=== PATIENT | male | born 1985 | race Caucasian/White ===

== ENCOUNTER 2018-12-10 04:00 | Emergency (ER) | payer MEDICAID ==
[~2018-12-10] VITALS: Ht 175.3 cm; Wt 90.7 kg
[2018-12-10 04:04] VITALS: BP 146/82
--- NOTE | 2018-12-10 04:08 | NUR ---
33 Y/O M [employer] [employer] FOR PREBOOK. PT HAS NO MEDICAL COMPLAINTS AT THIS TIME.
[2018-12-10 04:10] VITALS: BP 146/82
--- NOTE | 2018-12-10 04:14 | NUR ---
PATIENT BIB [employer]. PATIENT EXAMINED BY DR. DENT. PATIENT MEDICALLY CLEARED AND RELEASED IN CUSTODY IN STABLE CONDITION. RX OF BACTRIM GIVEN. ORIGINAL PRE-BOOK FORM GIVEN TO OFFICER SILVIA.
== END 2018-12-10 04:14 ==
LOC: MED 04:00
DX: S61.401A Unspecified open wound of right hand, initial encounter (principal); S61.402A Unspecified open wound of left hand, initial encounter; Z02.89 Encounter for other administrative examinations; X58.XXXA Exposure to other specified factors, initial encounter; Y93.89 Activity, other specified; Y92.89 Other specified places as the place of occurrence of the external cause; Y99.8 Other external cause status
CPT/HCPCS: 99283